=== PATIENT | male | born 1930 | race African-American/Black ===

== ENCOUNTER 2017-10-23 10:16 | Emergency (ER) | payer OTHER ==
[~2017-10-23] VITALS: Ht 185.4 cm; Wt 79.4 kg
[~2017-10-23 10:16] MED LIST: ASPIR 8181 M1 PO; Aspirin E.C. PO; CILOSTAZOL50 MG PO; DUONEB 2.5-0.5 M3 ML IH; FAMOTIDINE20 MG PO; FLEET ENEMA-AD118 ML PR; FUROSEMIDE20 MG PO; GLUCO BURST37.5 GM PO; Hyzaar 50-12.5 PO; KETOROLAC TROME10 MG PO; LANTUS 10100 UNITS/ SC; LANTUS 3 M100 UNITS1 SC; LASIX20 MG PO; LEVEMIR100 UNIT/2 SC; LIDOCAINE700 MG TD; LO-DOSE ASPIRIN81 M1 PO; MICRO-K10 ME2 PO; MIRTAZAPINE7.5 MG PO; NOVOLOG PE100 UNITS/ SC; PHILLIPS'400 MG/5 M PO; PRILOSEC OTC20 MG PO; PRILOSEC20 MG PO; Pletal PO; ROCEPHIN1000 MG IV; SENNALAX-S TAB1 EACH PO; TAMSULOSIN HCL0.4 MG PO; TYLENOL REGULA325 MG PO; UNABLE TO PROVIDE; VITAMIN D50000 UNI4 PO; Vicodin,Norco 5/325 PO; Vitamin D, Drisdol PO; ZYVOX600 MG PO; [UNRECOGNIZED DRUG - OTHER] IV
[2017-10-23 12:47] VITALS: BP 153/93
== END 2017-10-23 12:51 ==
LOC: EME 10:16
DX: S09.90XA Unspecified injury of head, initial encounter (principal); S46.911A Strain of unspecified muscle, fascia and tendon at shoulder and upper arm level, right arm, initial encounter; W06.XXXA Fall from bed, initial encounter; Y92.122 Bedroom in nursing home as the place of occurrence of the external cause; I11.0 Hypertensive heart disease with heart failure; I50.9 Heart failure, unspecified; E11.9 Type 2 diabetes mellitus without complications; F03.90 Unspecified dementia, unspecified severity, without behavioral disturbance, psychotic disturbance, mood disturbance, and anxiety; K21.9 Gastro-esophageal reflux disease without esophagitis; I73.9 Peripheral vascular disease, unspecified; Z86.73 Personal history of transient ischemic attack (TIA), and cerebral infarction without residual deficits; Z79.4 Long term (current) use of insulin; Z79.82 Long term (current) use of aspirin; Z89.512 Acquired absence of left leg below knee; Z87.891 Personal history of nicotine dependence
CPT/HCPCS: 70450; 71045; 80048; 85027; 99281; 99284